=== PATIENT | male | born 1965 | race Caucasian/White ===

== ENCOUNTER 2022-02-06 13:53 | Outpatient (CLI) | payer BC ==
[2022-02-06 15:01] LABS: Hemoglobin 13.9 g/dL (13.5-17.5); Mean Corpuscular HGB CONC 34.5 g/dL (32.0-36.0); Mean Corpuscular Hemoglobin 31.7 pg (27.0-33.0); Mean Corpuscular Volume 91.8 fl (81.2-95.1); Mean Platelet Volume 10.3 fl (7.4-10.4); Platelet Count 256 10x3/uL (150-450); RBC Distribution Width 12.7 % (11.5-14.5); Red Blood Cell (RBC) Count 4.39 10x6/uL (4.32-5.72); White Blood Cell (WBC) Count 5.4 10x3/uL (3.5-10.5)
[2022-02-06 15:18] LABS: INR-International Normal Ratio 0.9; PTT 25.8 sec (22.0-33.0); Prothrombin Time 10.3 sec (9.5-12.1)
[2022-02-06 15:22] LABS: Anion Gap 15 mmol/L (10-20); BUN (Urea Nitrogen) 18 mg/dL (8.4-25.7); Calc. Creatinine Clearance 0 mL/min (70-130); Carbon Dioxide 24 mmol/L (22-29); Chloride 106 mmol/L (98-107); Estimated GFR 87; Glucose 112 mg/dL (70-105); Potassium 4.6 mmol/L (3.5-5.1); Sodium 140 mmol/L (136-145)
== END 2022-02-06 13:54 | disposition home or self-care (01) ==
LOC: LABBT 13:53
PROVIDERS: ATTEND Neurological Surgery
DX: Z01.812 Encounter for preprocedural laboratory examination (principal); M54.16 Radiculopathy, lumbar region; M48.061 Spinal stenosis, lumbar region without neurogenic claudication; M48.07 Spinal stenosis, lumbosacral region
CPT/HCPCS: 80048; 85027; 85610; 85730

== ENCOUNTER 2022-02-11 05:40 | Observation (INO) | payer BC ==
[2022-02-10 10:08] VITALS: BMI 32.5
[2022-02-11] MEDS ORDERED: Vancomycin 1 GM VIAL ONE (06:11)
[2022-02-11] MEDS ORDERED: Neomycin-Polymyxin 1 ML AMP ONE (06:11)
[2022-02-11] MEDS ORDERED: Thrombin 5000 UNITS/5 ML VIAL ONE (06:11)
[2022-02-11] MEDS ORDERED: Bupivacaine HCl 0.5%/Epinephrine 1:200,000/PF 30 ml Vial ONE ×2 (06:11→07:59)
[2022-02-11] MEDS ORDERED: CEFAZOLIN 2 GM VIAL ONE ×2 (06:13→06:37)
[2022-02-11] MEDS ORDERED: Sodium Chloride 0.9% 0 ML ONE (06:13)
[2022-02-11] MEDS ORDERED: Acetaminophen/Codeine 30-300mg Tablet PO PRN (06:35)
[2022-02-11] MEDS ORDERED: Bisacodyl 10 MG SUPP PR PRN (06:35)
[2022-02-11] MEDS ORDERED: Mag-Al 1200 mg/1200 mg/30 ML UDCUP PO PRN (06:35)
[2022-02-11] MEDS ORDERED: Milk Of Magnesia 30 ML UDCUP PO PRN (06:35)
[2022-02-11] MEDS ORDERED: diphenhydrAMINE 50 MG/ML VIAL IVP PRN (06:35)
[2022-02-11] MEDS ORDERED: Ondansetron PF 4 MG/2 ML Vial IVP PRN (06:35)
[2022-02-11] MEDS ORDERED: Acetaminophen 325 MG TAB PO PRN (06:35)
[2022-02-11] MEDS ORDERED: Sodium Chloride 0.9% 100 ML ONE (06:37)
[2022-02-11] MEDS ORDERED: Famotidine/PF 20 mg/2ml Vial ONE (06:38)
[2022-02-11] MEDS ORDERED: Fentanyl 250 MCG/5 ML VIAL ONE (06:38)
[2022-02-11] MEDS ORDERED: tiZANidine HCl 4 MG TAB PO PRN (06:38)
[2022-02-11] MEDS ORDERED: SUGAMMADEX SODIUM 200 MG/2 ML VIAL ONE (06:38)
[2022-02-11] MEDS ORDERED: Morphine 4 MG/ML VIAL SLOW IVP PRN (06:45)
[2022-02-11] MEDS ORDERED: Midazolam HCl 2 mg/2 ml Vial ONE (06:48)
[2022-02-11] MEDS ORDERED: Rocuronium Bromide 10 MG/ML (10ML VIAL) ONE (06:57)
[2022-02-11] MEDS ORDERED: Ondansetron PF 4 MG/2 ML Vial ONE (06:57)
[2022-02-11] MEDS ORDERED: Vecuronium 10 MG VIAL ONE (06:57)
[2022-02-11] MEDS ORDERED: Lidocaine 1% PF 5 ML VIAL ONE (06:57)
[2022-02-11] MEDS ORDERED: PROPOFOL 200 MG/20 ML VIAL ONE (06:57)
[2022-02-11] MEDS ORDERED: Dexamethasone 20 MG/5 ML VIAL ONE (06:57)
[2022-02-11] MEDS ORDERED: ePHEDrine 50 MG/ML VIAL ONE (06:57)
[2022-02-11] MEDS ORDERED: Metoclopramide HCl 10 MG/2 ML VIAL ONE (06:57)
[2022-02-11] MEDS ORDERED: PHENYLEPHRINE-NS 100 MCG/ML 10 ML SYRINGE ONE (06:57)
[2022-02-11] MEDS ORDERED: Ketorolac Tromethamine 30 MG/ML VIAL ONE (06:57)
[2022-02-11 07:27] LABS: SARS-CoV-2 NAA Rapid Test Not Detected (NotDetected)
[2022-02-11] MEDS ORDERED: Meperidine HCl/PF 25 MG/ML VIAL SLOW IVP PRN (11:46)
[2022-02-11] MEDS ORDERED: Promethazine HCl 25 MG/ML VIAL IVPB PRN (11:46)
[2022-02-11] MEDS ORDERED: Promethazine HCl 25 MG/ML VIAL IM PRN (11:46)
[2022-02-11] MEDS ORDERED: PACU-Morphine 4MG/ML VIAL SLOW IVP PRN (11:46)
[2022-02-11] MEDS ORDERED: Ondansetron HCl/PF 4 MG/2 ML Vial IVP PRN (11:46)
[2022-02-11] MEDS ORDERED: Fentanyl 100 MCG/2 ML VIAL ONE ×2 (11:59→12:56)
[2022-02-11] MEDS: Sodium Chloride 0.9% 1,000 ML IV SCH ×2 (15:11→20:13)
[2022-02-11] MEDS: CEFAZOLIN 2 GM in Sodium Chloride 0.9% 100 ML IVPB SCH ×2 (15:16→21:02)
[2022-02-11] MEDS: HYDROcodone/Acetaminophen 7.5/325 mg Tablet PO PRN (16:23)
[2022-02-11] MEDS: HYDROcodone/Acetaminophen 10/325 mg Tablet PO PRN (20:11)
[2022-02-12] MEDS: HYDROcodone/Acetaminophen 10/325 mg Tablet PO PRN (00:52)
[2022-02-12] MEDS: HYDROcodone/Acetaminophen 7.5/325 mg Tablet PO PRN ×2 (05:23→09:22)
[2022-02-12 07:58] VITALS: BP 116/68; TEMP 98
[2022-02-12] MEDS: Sodium Chloride 0.9% 1,000 ML IV SCH (08:32)
== END 2022-02-12 10:10 | disposition home or self-care (01) ==
LOC: SDC 05:40 → SURG B 15:10
PROVIDERS: ADMIT Neurological Surgery; ATTEND Neurological Surgery
PROC: 01NB0ZZ Release Lumbar Nerve, Open Approach (ICD-10-PCS; principal; 2022-02-11)
PROC: 0SG30AJ Fusion of Lumbosacral Joint with Interbody Fusion Device, Posterior Approach, Anterior Column, Open Approach (ICD-10-PCS; 2022-02-11)
DX: M48.062 Spinal stenosis, lumbar region with neurogenic claudication (principal); M54.16 Radiculopathy, lumbar region; M54.17 Radiculopathy, lumbosacral region; M43.16 Spondylolisthesis, lumbar region; Z79.899 Other long term (current) drug therapy; Z20.822 Contact with and (suspected) exposure to COVID-19
CPT/HCPCS: C1713; C1768; C1776; C1889; J1100; J1885; J2250; J2270; J2405; J2704; J2765; J3010; J3370; J3490; S0028; U0002